=== PATIENT | female | born 1990 | race Caucasian/White ===

== ENCOUNTER → 2016-09-14 | Outpatient (CLI) | payer BC ==
[~2016-09-14] MED LIST: ACET-1256 PO; HYDR-5688 PO; ONDA4TAB10 SL; RANI150T3 PO
== END | disposition home or self-care (01) ==
LOC: C.LABSPEC 11:29
PROVIDERS: ATTEND Obstetrics & Gynecology
DX: N89.8 Other specified noninflammatory disorders of vagina (principal)

== ENCOUNTER → 2016-09-14 | Outpatient (CLI) | payer BC | END | disposition home or self-care (01) | LOC: C.PAPS 12:07 | PROVIDERS: ATTEND Obstetrics & Gynecology | DX: Z01.419 Encounter for gynecological examination (general) (routine) without abnormal findings (principal) ==

== ENCOUNTER 2017-02-10 18:26 | Emergency (ER) | payer BC ==
[~2017-02-10] VITALS: Ht 185.4 cm; Wt 100.8 kg
[2017-02-10 18:31] VITALS: TEMP 36.8; Ht 185.4 cm; Wt 100.8 kg
--- NOTE | 2017-02-10 18:36 | EMERGENCY ROOM VISIT NOTE ---
History Report prepared by Tia: Sam Segovia Under the Supervision of: Dr. Layton Ortiz M.D. First contact with patient: 18:34 Chief Complaint: ABDOMINAL PAIN Stated Complaint: SEVERE STOMACH PAINS,THROWING UP BLOOD History of Present Illness The patient is a 26 year old female who presents to the Emergency Room with complaints of episodes of vomiting that started around 2 hours ago. She says that she was feeling fine beforehand, and only had some ice cream around 6 hours ago. The patient states that she started off with cramping upper abdominal pain, which then worsened to a sharp pain. She says that she then started vomiting, and had multiple episodes. The patient adds that she later noticed some blood in her vomit. She says that there was not a lot of blood, but it was noticeable. She says that she still has the abdominal pain, and it is relieved if she sits up. She adds that her twin sister had the same symptoms as her recently, and the sister ended up having a cholecystectomy for gall stones. The patient denies any shortness of breath, chest pain, back pain, diarrhea, hematochezia, melena, or urinary symptoms. She also says that she has no chance of , and she has not eaten any unusual foods recently. Source of History: patient Onset: Around 2 hours ago Position: other (global - vomiting) Symptom Intensity: multiple episodes Quality: other (episode of vomiting blood) Timing: other (episodes) Associated Symptoms: + abdominal pain (upper), No back pain, No melena, No hematochezia, No diarrhea, No urinary symptoms Note: No other associated symptoms noted. Review of Systems See HPI for pertinent positives & negatives. A total of 10 systems reviewed and were otherwise negative. Past Medical & Surgical Medical Problems: (1) No chronic diseases present Old medical records were reviewed. Nurse's notes were reviewed and I agree with. Family History FHx: gallbladder disease Social History Smoking Status: Never Smoker Marital Status: single Occupation Status: student Current/Historical Medications Scheduled Acetaminophen (Tylenol), 1,000 MG PO PRN UD Allergies Coded Allergies: No Known Allergies (Unverified , 02/10/17) Physical Exam Vital Signs Date Time Temp Pulse Resp B/P (MAP) Pulse Ox O2 Delivery O2 Flow Rate FiO2 02/10/17 20:45 60 124/68 100 Room Air 02/10/17 19:09 64 02/10/17 18:31 36.8 74 18 145/93 98 Room Air Physical Exam General: Well developed well nourished non ill appearing young female in no acute distress, breathing comfortably on room air. Normal speech HEENT: Normal cephalic atraumatic. Pupils are equal round and reactive to light. Extraocular movements are intact. Oropharynx is pink with moist mucous membranes. No swelling of the mouth lips or tongue. Neck: Supple with a midline trachea. No meningeal signs or stiffness, no JVD or bruits. No Stridor. Chest: Clear to auscultation bilaterally. No wheezes or rhonchi. No increased work of breathing. Heart: regular rate and rhythm. Abdomen: Mildly tender to palpation in epigastric area, negative Sands's sign, no low abdominal tenderness. Soft, nondistended without rebound guarding or rigidity. Extremities: No cyanosis clubbing or edema. No calf tenderness or assymetry Spine/Back. Non tender to palpation. No CVA tenderness Skin: Good turgor without rashes. Neurologic exam: Cranial nerves two through 12 are intact. Motor and sensation are intact and symmetrical throughout. Medical Decision & Procedures ER Provider Diagnostic Interpretation: US results as stated below per my review and radiologist interpretation: ULTRASOUND RIGHT UPPER QUADRANT ABDOMEN CLINICAL HISTORY: Right upper quadrant abdominal pain. COMPARISON STUDY: No priors. TECHNIQUE: Real-time, grayscale, and color flow sonography of the right upper quadrant of the abdomen was performed. Images are reviewed in the transverse and longitudinal planes. FINDINGS: Liver: The liver is enlarged, measuring 19 cm in length. The liver is otherwise normal in echotexture. There is no intrahepatic biliary ductal dilatation. The main portal vein is patent. Gallbladder: The gallbladder is distended. There are layering shadowing calcified gallstones as well as biliary sludge. There is no gallbladder wall thickening or pericholecystic fluid. A sonographic Sands's sign could not be assessed as the patient has received analgesia. The common bile duct measures up to 0.3 cm in diameter. Pancreas: Visualized portions of the pancreatic head and body are normal in appearance. The splenic vein is patent. Right kidney: Survey images of the right kidney demonstrate normal size and echotexture. There is no hydronephrosis. Ascites: None. IMPRESSION: 1. Cholelithiasis and biliary sludge with no convincing sonographic evidence of acute cholecystitis. If there is strong clinical concern for cholecystitis consider nuclear hepatobiliary scan for further assessment. 2. There is no intra or extrahepatic biliary ductal dilatation. Electronically signed by: Billy Price M.D. 02/10/2017 8:04 PM Dictated Date/Time: 02/10/2017 8:02 PM Laboratory Results 02/10/17 19:11 Red Blood Count 4.28, Mean Corpuscular Volume 92.1, Mean Corpuscular Hemoglobin 31.1, Mean Corpuscular Hemoglobin Concent 33.8, Mean Platelet Volume 10.4, Neutrophils (%) (Auto) 66.9, Lymphocytes (%) (Auto) 19.9, Monocytes (%) (Auto) 12.2, Eosinophils (%) (Auto) 0.7, Basophils (%) (Auto) 0.1, Neutrophils # (Auto ) 5.37, Lymphocytes # (Auto) 1.60, Monocytes # (Auto) 0.98, Eosinophils # (Auto ) 0.06, Basophils # (Auto) 0.01 02/10/17 19:11 Test 02/10/17 18:55 02/10/17 19:11 Urine Test NEG (NEG) White Blood Count 8.04 K/uL (4.8-10.8) Red Blood Count 4.28 M/uL (4.2-5.4) Hemoglobin 13.3 g/dL (12.0-16.0) Hematocrit 39.4 % (37-47) Mean Corpuscular Volume 92.1 fL (80-100) Mean Corpuscular Hemoglobin 31.1 pg (25-34) Mean Corpuscular Hemoglobin Concent 33.8 g/dl (32-36) Platelet Count 251 K/uL (130-400) Mean Platelet Volume 10.4 fL (7.4-10.4) Neutrophils (%) (Auto) 66.9 % Lymphocytes (%) (Auto) 19.9 % Monocytes (%) (Auto) 12.2 % Eosinophils (%) (Auto) 0.7 % Basophils (%) (Auto) 0.1 % Neutrophils # (Auto) 5.37 K/uL (1.4-6.5) Lymphocytes # (Auto) 1.60 K/uL (1.2-3.4) Monocytes # (Auto) 0.98 K/uL (0.11-0.59) Eosinophils # (Auto) 0.06 K/uL (0-0.5) Basophils # (Auto) 0.01 K/uL (0-0.2) RDW Standard Deviation 45.9 fL (36.4-46.3) RDW Coefficient of Variation 13.7 % (11.5-14.5) Immature Granulocyte % (Auto) 0.2 % Immature Granulocyte # (Auto) 0.02 K/uL (0.00-0.02) Anion Gap 8.0 mmol/L (3-11) Est Creatinine Clear Calc Drug Dose 162.7 ml/min Estimated GFR () 135.9 Estimated GFR (Non- 117.2 BUN/Creatinine Ratio 17.8 (10-20) Calcium Level 9.1 mg/dl (8.5-10.1) Total Bilirubin 0.2 mg/dl (0.2-1) Direct Bilirubin 0.1 mg/dl (0-0.2) Aspartate Amino Transf (AST/SGOT) 13 U/L (15-37) Alanine Aminotransferase (ALT/SGPT) 20 U/L (12-78) Alkaline Phosphatase 75 U/L (45-117) Total Protein 7.4 gm/dl (6.4-8.2) Albumin 3.8 gm/dl (3.4-5.0) Lipase 214 U/L (73-393) Laboratory studies as stated above per my review. Medications Administered Medications (Trade) Dose Ordered Sig/Elpidio Route Start Time Stop Time Status Last Admin Dose Admin Ondansetron HCl (Zofran Inj) 4 mg NOW STAT IV 02/10/17 18:52 02/10/17 18:55 DC 02/10/17 19:19 4 MG Sodium Chloride 1,000 ml @ 999 mls/hr Q1H1M STAT IV 02/10/17 18:52 02/10/17 19:52 DC 02/10/17 19:18 999 MLS/HR Ketorolac Tromethamine (Toradol Inj) 30 mg NOW STAT IV 02/10/17 18:55 02/10/17 19:00 DC 02/10/17 19:19 30 MG ED Course 1850: Past medical records reviewed. The patient was evaluated in room C3, and a complete history and physical examination were performed. 1851: Ordered NSS 1000 ml @ 999 mls/hr IV, Zofran Inj 4 mg IV. 1854: Ordered Toradol Inj 30 mg IV. 1926: I reevaluated and updated the patient. 2007: I reevaluated the patient and she is resting comfortably. The patient verbally expressed understanding and agreement with the treatment plan. The patient will be discharged. Medical Decision Differentials include, but are not limited to; gastritis, gallbladder disease, electrolyte or metabolic abnormality, pancreatitis. Medication Reconciliation: I attest that I have personally reviewed the patient' s current medication list. She does not currently take any daily medications. Blood Pressure Screening: Patient was found to have a slightly elevated blood pressure due to circumstances. I do not believe that the patient requires hypertension monitoring. This patient comes in as described above. She was placed in room C3. She had epigastric pain and vomited she had a little bit of blood. She looks well on exam. her abdomen is minimally tender. Her twin sister had her gallbladder removed in the past. She has no peritonitis and has a negative Sands sign. IV access established and multiple blood testing was obtained. She has no findings to suggest sepsis or acute infection specifically nothing to suggest acute cholecystitis. She does however have multiple gallstones. She is not . It is possible that the gallstones did cause some of her symptoms the vomiting with a small amount of blood. She could have a small Eloise- Byrd tear. She should use [id number] Zantac or antacid. I encouraged to follow-up with the surgeon she may ultimately need to have the gallbladder removed. She was happy with the plan and discharged to home. Impression Primary Impression: Cholelithiases Additional Impression: Epigastric abdominal pain Scribe Attestation The scribe's documentation has been prepared under my direction and personally reviewed by me in its entirety. I confirm that the note above accurately reflects all work, treatment, procedures, and medical decision making performed by me. Departure Information Dispostion Home / Self-Care Referrals No Doctor, Assigned (PCP) Forms HOME CARE DOCUMENTATION FORM, IMPORTANT VISIT INFORMATION Patient Instructions My [facility] Additional Instructions Rest and drink plenty of fluids as tolerated. Slow sips of water or sports drinks are recommended instead of large amounts all at once. Take Zantac (Ranitidine) 150mg twice daily for your stomach due to your bleeding with vomiting Acetaminophen(Tylenol) may be used for fever or pain. Use 1000mg every six hours as needed. Avoid using more than 4000mg in a 24 hour period. Do not combine with any other medications that say Acetaminophen or Tylenol. Once your stomach is settled start with a clear liquid diet (jello, soup broth, etc.) and then advance as tolerated. You should avoid full, heavy meals for about 24 hrs from the time your symptoms resolved. Return to the ER immediately for worsening or persistent abdominal pain, vomiting, fevers, chest pains, difficulty breathing, black or bloody stools, worsening of your condition, or as needed. Follow up with your primary physician in 2-3 days for a recheck of your current condition. Follow up with [facility] - General Surgery for your Gallstones [address] [place] [address] Tuesday through , from 8:00 am to 5:00 pm Tuesday, from 8:00 am to 2:00 pm Problem Qualifiers Primary Impression: Cholelithiases Cholelithiasis location: gallbladder Cholecystitis presence: without cholecystitis Biliary obstruction: without biliary obstruction Qualified Codes: K80.20 - Calculus of gallbladder without cholecystitis without obstruction
[2017-02-10] MEDS ORDERED: SODIUM CHLORIDE 0.9% 1000ML 1,000 ML IV STA (18:52)
[2017-02-10] MEDS ORDERED: ONDANSETRON INJ 2 MG/ML 2 ML VIAL IV STA (18:52)
[2017-02-10] MEDS ORDERED: KETOROLAC TROMETHAMINE 30 MG/ML VIAL IV STA (18:55)
[2017-02-10] MEDS ORDERED: ACET-1256 PO (19:24)
[2017-02-10 19:28] LABS: BASO % 0.1 %; BASO ABS # 0.01 K/uL (0-0.2); COMPLETE YES; EOS % 0.7 %; HEMATOCRIT 39.4 % (37-47); IG% 0.2 %; LYMPH % 19.9 %; MEAN CELL VOLUME 92.1 fL (80-100); MEAN CORPUSCULAR HEMOGLOBIN 31.1 pg (25-34); MEAN CORPUSCULAR HGB CONC 33.8 g/dl (32-36); MEAN PLATELET VOLUME 10.4 fL (7.4-10.4); MONO % 12.2 %; NEUT % 66.9 %; PLATELET COUNT 251 K/uL (130-400); RED BLOOD COUNT 4.28 M/uL (4.2-5.4); WHITE BLOOD COUNT 8.04 K/uL (4.8-10.8)
[2017-02-10 19:47] LABS: BUN/CREATININE RATIO 17.8 (10-20); CALCIUM 9.1 mg/dl (8.5-10.1); CREATININE 0.72 mg/dl (0.60-1.20); POTASSIUM 3.8 mmol/L (3.5-5.1)
--- NOTE | 2017-02-10 20:05 | DIAGNOSTIC IMAGING REPORT ---
ULTRASOUND RIGHT UPPER QUADRANT ABDOMEN CLINICAL HISTORY: Right upper quadrant abdominal pain. COMPARISON STUDY: No priors. TECHNIQUE: Real-time, grayscale, and color flow sonography of the right upper quadrant of the abdomen was performed. Images are reviewed in the transverse and longitudinal planes. FINDINGS: Liver: The liver is enlarged, measuring 19 cm in length. The liver is otherwise normal in echotexture. There is no intrahepatic biliary ductal dilatation. The main portal vein is patent. Gallbladder: The gallbladder is distended. There are layering shadowing calcified gallstones as well as biliary sludge. There is no gallbladder wall thickening or pericholecystic fluid. A sonographic Sands's sign could not be assessed as the patient has received analgesia. The common bile duct measures up to 0.3 cm in diameter. Pancreas: Visualized portions of the pancreatic head and body are normal in appearance. The splenic vein is patent. Right kidney: Survey images of the right kidney demonstrate normal size and echotexture. There is no hydronephrosis. Ascites: None. IMPRESSION: 1. Cholelithiasis and biliary sludge with no convincing sonographic evidence of acute cholecystitis. If there is strong clinical concern for cholecystitis consider nuclear hepatobiliary scan for further assessment. 2. There is no intra or extrahepatic biliary ductal dilatation. Electronically signed by: Billy Price M.D. 02/10/2017 8:04 PM Dictated Date/Time: 02/10/2017 8:02 PM
--- NOTE | 2017-02-10 20:39 | EMERGENCY ROOM VISIT NOTE ---
History First contact with patient: 18:55 Chief Complaint: ABDOMINAL PAIN Stated Complaint: SEVERE STOMACH PAINS,THROWING UP BLOOD Nursing Triage Summary: Patient ambulatory to triage with a steady and upright gait, states "I am having the worst stomach pains. I was throwing up blood earlier but that has calmed down. I am still nauseated. I have pain in both sides of my abdomen under my ribs." Patient denies any back pain. Patient took 1gm of Tylenol prior to coming to the ED. History of Present Illness The patient is a 26 year old female who presents to the Emergency Room with complaints of abdominal pain. The patient states that around 5 PM this afternoon she began to have pain along her ribs below her breast line radiating across her chest. She states that the pain is a constant, 7 out of 10, dull chest pain but can come sharp and 10 out of 10 pain associated with vomiting. She had 2 prolonged episodes of vomiting, the second of which was associated with blood streaking. She has had episodes of pain associated with the vomiting like this before, but has never had blood in her vomit. She has no previous medical conditions, but states that her sister who is her twin recently developed similar pain and symptoms and was diagnosed with cholecystitis was subsequently treated with a cholecystectomy. She denies any association of the pain or vomiting with diet or any other associated conditions. She denies any fever, chills, chest pain, constipation, diarrhea, or any other acute symptoms. She denies any drug use, any history of blood clots, or any family history of blood clots. Review of Systems See HPI for pertinent positives and negatives. A total of ten systems were reviewed and were otherwise negative. Past Medical/Surgical History Medical Problems: (1) No chronic diseases present Family History FHx: gallbladder disease Social History Smoking Status: Never Smoker Current/Historical Medications Scheduled Acetaminophen (Tylenol), 1,000 MG PO PRN UD Allergies Coded Allergies: No Known Allergies (Unverified , 02/10/17) Physical Exam Vital Signs Date Time Temp Pulse Resp B/P (MAP) Pulse Ox O2 Delivery O2 Flow Rate FiO2 02/10/17 19:09 64 02/10/17 18:31 36.8 74 18 145/93 98 Room Air Physical Exam GENERAL: Awake, alert, well-appearing, in no distress HENT: Normocephalic, atraumatic. Oropharynx unremarkable. EYES: Normal conjunctiva. Sclera non-icteric. NECK: Supple. No nuchal rigidity. RESPIRATORY: Clear to auscultation. CARDIAC: Regular rate, normal rhythm. Extremities warm and well perfused. Pulses equal. ABDOMEN: Soft, non-distended. Tenderness to palpation in RUQ abdominal region and epigastric region. Positive Sands's sign. No rebound or guarding. No masses. RECTAL: Deferred. MUSCULOSKELETAL: Chest examination reveals no tenderness. The back is symmetrical on inspection without obvious abnormality. There is no CVA tenderness to palpation. No joint edema. LOWER EXTREMITIES: Calves are equal size bilaterally and non-tender. No edema. No discoloration. NEURO: Normal sensorium. No sensory or motor deficits noted. SKIN: No rash or jaundice noted. Medical Decision & Procedures Laboratory Results 02/10/17 19:11 Red Blood Count 4.28, Mean Corpuscular Volume 92.1, Mean Corpuscular Hemoglobin 31.1, Mean Corpuscular Hemoglobin Concent 33.8, Mean Platelet Volume 10.4, Neutrophils (%) (Auto) 66.9, Lymphocytes (%) (Auto) 19.9, Monocytes (%) (Auto) 12.2, Eosinophils (%) (Auto) 0.7, Basophils (%) (Auto) 0.1, Neutrophils # (Auto ) 5.37, Lymphocytes # (Auto) 1.60, Monocytes # (Auto) 0.98, Eosinophils # (Auto ) 0.06, Basophils # (Auto) 0.01 02/10/17 19:11 Test 02/10/17 19:11 White Blood Count 8.04 K/uL (4.8-10.8) Red Blood Count 4.28 M/uL (4.2-5.4) Hemoglobin 13.3 g/dL (12.0-16.0) Hematocrit 39.4 % (37-47) Mean Corpuscular Volume 92.1 fL (80-100) Mean Corpuscular Hemoglobin 31.1 pg (25-34) Mean Corpuscular Hemoglobin Concent 33.8 g/dl (32-36) Platelet Count 251 K/uL (130-400) Mean Platelet Volume 10.4 fL (7.4-10.4) Neutrophils (%) (Auto) 66.9 % Lymphocytes (%) (Auto) 19.9 % Monocytes (%) (Auto) 12.2 % Eosinophils (%) (Auto) 0.7 % Basophils (%) (Auto) 0.1 % Neutrophils # (Auto) 5.37 K/uL (1.4-6.5) Lymphocytes # (Auto) 1.60 K/uL (1.2-3.4) Monocytes # (Auto) 0.98 K/uL (0.11-0.59) Eosinophils # (Auto) 0.06 K/uL (0-0.5) Basophils # (Auto) 0.01 K/uL (0-0.2) RDW Standard Deviation 45.9 fL (36.4-46.3) RDW Coefficient of Variation 13.7 % (11.5-14.5) Immature Granulocyte % (Auto) 0.2 % Immature Granulocyte # (Auto) 0.02 K/uL (0.00-0.02) Anion Gap 8.0 mmol/L (3-11) Est Creatinine Clear Calc Drug Dose 162.7 ml/min Estimated GFR () 135.9 Estimated GFR (Non- 117.2 BUN/Creatinine Ratio 17.8 (10-20) Calcium Level 9.1 mg/dl (8.5-10.1) Total Bilirubin 0.2 mg/dl (0.2-1) Direct Bilirubin 0.1 mg/dl (0-0.2) Aspartate Amino Transf (AST/SGOT) 13 U/L (15-37) Alanine Aminotransferase (ALT/SGPT) 20 U/L (12-78) Alkaline Phosphatase 75 U/L (45-117) Total Protein 7.4 gm/dl (6.4-8.2) Albumin 3.8 gm/dl (3.4-5.0) Lipase 214 U/L (73-393) Medications Administered Medications (Trade) Dose Ordered Sig/Elpidio Route Start Time Stop Time Status Last Admin Dose Admin Ondansetron HCl (Zofran Inj) 4 mg NOW STAT IV 02/10/17 18:52 02/10/17 18:55 DC 02/10/17 19:19 4 MG Sodium Chloride 1,000 ml @ 999 mls/hr Q1H1M STAT IV 02/10/17 18:52 02/10/17 19:52 DC 02/10/17 19:18 999 MLS/HR Ketorolac Tromethamine (Toradol Inj) 30 mg NOW STAT IV 02/10/17 18:55 02/10/17 19:00 DC 02/10/17 19:19 30 MG Medical Decision Patient is a 26 year old female that presents with vomiting and abdominal pain Labs: CBC, BMP, Lipase, LFTs Imaging: Gallbladder US Medications: Zofran, Toradol Fluids: 1L NS Impression Primary Impression: Cholelithiases Patient is a 26 year old female that presents with abdominal pain and vomiting - On US of the Gallbladder the patient was found to have Cholelithiasis and biliary sludge with no convincing sonographic evidence of acute cholecystitis - CBC, BMP, Lipase, and LFTs appear to be within normal limit - Patient states she feels much better after receiving 1L of NS, Toradol, and Zofran - Patient agreeable to discharge home and follow-up with general surgery Departure Information Dispostion Home / Self-Care Condition GOOD Referrals No Doctor, Assigned (PCP) Patient Instructions My [facility] Additional Instructions Rest and drink plenty of fluids as tolerated. Slow sips of water or sports drinks are recommended instead of large amounts all at once. Take Zantac (Ranitidine) 150mg twice daily for your stomach due to your bleeding with vomiting Acetaminophen(Tylenol) may be used for fever or pain. Use 1000mg every six hours as needed. Avoid using more than 4000mg in a 24 hour period. Do not combine with any other medications that say Acetaminophen or Tylenol. Once your stomach is settled start with a clear liquid diet (jello, soup broth, etc.) and then advance as tolerated. You should avoid full, heavy meals for about 24 hrs from the time your symptoms resolved. Return to the ER immediately for worsening or persistent abdominal pain, vomiting, fevers, chest pains, difficulty breathing, black or bloody stools, worsening of your condition, or as needed. Follow up with your primary physician in 2-3 days for a recheck of your current condition. Follow up with [facility] - General Surgery for your Gallstones [address] [place] [id number] Tuesday through , from 8:00 am to 5:00 pm Tuesday, from 8:00 am to 2:00 pm Problem Qualifiers Primary Impression: Cholelithiases Cholelithiasis location: gallbladder Cholecystitis presence: without cholecystitis Biliary obstruction: without biliary obstruction Qualified Codes: K80.20 - Calculus of gallbladder without cholecystitis without obstruction
[2017-02-10 20:45] VITALS: BP 124/68; PULSE 60; O2SAT 100
== END 2017-02-10 20:55 | disposition home or self-care (01) ==
LOC: C.EDB 18:27 → C.EDC 20:55
DX: K80.20 Calculus of gallbladder without cholecystitis without obstruction (principal)

== ENCOUNTER 2017-02-18 03:22 | Emergency (ER) | payer BC ==
[~2017-02-18] VITALS: Ht 185.4 cm; Wt 99.3 kg
[~2017-02-18 03:22] MED LIST changes: -HYDR-5688 PO; -ONDA4TAB10 SL; -RANI150T3 PO
[2017-02-18 03:25] VITALS: TEMP 36.7; Ht 185.4 cm; Wt 99.3 kg
[2017-02-18] MEDS ORDERED: RANI150T3 PO (03:44)
[2017-02-18] MEDS ORDERED: KETOROLAC TROMETHAMINE 30 MG/ML VIAL IV STA (03:57)
[2017-02-18] MEDS ORDERED: ONDANSETRON INJ 2 MG/ML 2 ML VIAL IV STA (03:57)
[2017-02-18] MEDS ORDERED: SODIUM CHLORIDE 0.9% 1000ML 1,000 ML IV ONE (04:00)
[2017-02-18 04:03] LABS: BASO % 0.3 %; BASO ABS # 0.02 K/uL (0-0.2); COMPLETE YES; EOS % 1.2 %; HEMATOCRIT 42.7 % (37-47); IG% 0.3 %; LYMPH % 27.3 %; LYMPH ABS # 2.07 K/uL (1.2-3.4); MEAN CORPUSCULAR HEMOGLOBIN 30.8 pg (25-34); MEAN CORPUSCULAR HGB CONC 33.5 g/dl (32-36); MEAN PLATELET VOLUME 10.5 fL (7.4-10.4); MONO % 13.5 %; NEUT % 57.4 %; PLATELET COUNT 253 K/uL (130-400); RED BLOOD COUNT 4.64 M/uL (4.2-5.4); WHITE BLOOD COUNT 7.58 K/uL (4.8-10.8)
[2017-02-18 04:48] LABS: BUN/CREATININE RATIO 15.1 (10-20); CREATININE 0.75 mg/dl (0.60-1.20); POTASSIUM 3.8 mmol/L (3.5-5.1)
[2017-02-18 04:51] LABS: ALB/GLOB RATIO 1.1 (0.9-2)
--- NOTE | 2017-02-18 06:56 | DIAGNOSTIC IMAGING REPORT ---
GALLBLADDER-ABD LIMITED HISTORY: 26 years-old Female acute right upper quadrant abdominal pain COMPARISON: Ultrasound 02/10/2017 TECHNIQUE: Multiple real-time sonographic images of the abdominal right upper quadrant were obtained assessing grayscale appearance FINDINGS: Imaged pancreas is unremarkable with the distal body and tail obscured by bowel gas. Liver appears to be within normal limits measuring up to 19 cm in length. Layering gallbladder sludge and shadowing cholelithiasis redemonstrated. No bladder wall thickening or pericholecystic fluid collection. Patient was reportedly medicated for pain, therefore a reliable sonographic Sands's test was not obtained. Common bile duct appears normal without dilation measuring up to 3 mm transversely. The right kidney appears to be within normal limits without hydronephrosis. IMPRESSION: 1. Cholelithiasis and gallbladder sludge without sonographic evidence of acute cholecystitis. 2. No biliary ductal dilatation. The above report was generated using voice recognition software. It may contain grammatical, syntax or spelling errors. Electronically signed by: Tor Ivey M.D. 02/18/2017 6:55 AM Dictated Date/Time: 02/18/2017 6:51 AM
[2017-02-18] MEDS ORDERED: ONDA4TAB10 SL (07:17)
[2017-02-18] MEDS ORDERED: HYDR-5688 PO (07:17)
[2017-02-18 07:29] VITALS: BP 108/69; PULSE 61; O2SAT 99
--- NOTE | 2017-02-19 04:40 | EMERGENCY ROOM VISIT NOTE ---
History First contact with patient: 03:41 Chief Complaint: ABDOMINAL PAIN Stated Complaint: SEVERE STOMACH PAINS,VOMITING History of Present Illness The patient is a 26 year old female who presents to the Emergency Room with complaints of right upper quadrant abdominal pain with nausea and vomiting for the past 2 hours. The patient states that she was seen about a week and a half ago at this facility with similar complaints. She had an ultrasound at that time which showed gallstones and sludge. She did not have acute cholecystitis at that time and is scheduled with an outpatient surgeon in about 2 weeks. The patient states that she had been eating a very bland diet up until last evening when she ate a cheeseburger. The patient states that she awoke with her discomfort and that it feels identical to her episode earlier in the month. The patient has not had fever or chills. No lower abdominal pain. She rates her discomfort a sharp 8/10 that does not radiate. Review of Systems More than 10 systems were reviewed and otherwise negative with the exception of history of present illness. Past Medical/Surgical History Medical Problems: (1) No chronic diseases present Family History FHx: gallbladder disease No pertinent family history Social History Smoking Status: Never Smoker Marital Status: single Occupation Status: student Current/Historical Medications Scheduled Ondasetron Odt (Zofran Odt), 4 MG SL Q6H Ranitidine Hcl (Zantac), 150 MG PO BID Scheduled PRN Acetaminophen (Tylenol), 1,000 MG PO DIRECTED PRN for Pain or Fever Hydrocodone/Acetaminophen 5MG/325MG ([place] 5MG/325MG), 1 TABLET PO Q6 PRN for Pain Physical Exam Vital Signs Date Time Temp Pulse Resp B/P (MAP) Pulse Ox O2 Delivery O2 Flow Rate FiO2 02/18/17 07:29 61 18 108/69 99 02/18/17 06:52 55 16 102/65 98 Room Air 02/18/17 05:11 62 16 122/69 97 Room Air 02/18/17 03:25 36.7 79 16 134/89 98 Room Air Pain Rating (0-10): 1.0 Physical Exam VITALS: Vitals are noted on the nurse's note and reviewed by myself. Vital signs stable. GENERAL: Well-developed, well-nourished, white female, who is in no acute distress and resting comfortably. Patient is cooperative with the examination. HEAD: Normocephalic atraumatic. HEART: Regular rate and rhythm without murmurs gallops or rubs. LUNGS: Clear to auscultation bilaterally without wheezes, rales or rhonchi. No retractions or accessory muscle use. ABDOMEN: Positive normal bowel sounds x 4. Soft with positive right upper quadrant tenderness on palpation. No lower abdominal tenderness. No rebound or guarding. No CVA tenderness. MUSCULOSKELETAL: No muscle atrophy, erythema, or edema noted. Full range of motion without joint tenderness in all extremities. Medical Decision & Procedures ER Provider Diagnostic Interpretation: GALLBLADDER-ABD LIMITED HISTORY: 26 years-old Female acute right upper quadrant abdominal pain COMPARISON: Ultrasound 02/10/2017 TECHNIQUE: Multiple real-time sonographic images of the abdominal right upper quadrant were obtained assessing grayscale appearance FINDINGS: Imaged pancreas is unremarkable with the distal body and tail obscured by bowel gas. Liver appears to be within normal limits measuring up to 19 cm in length. Layering gallbladder sludge and shadowing cholelithiasis redemonstrated. No bladder wall thickening or pericholecystic fluid collection. Patient was reportedly medicated for pain, therefore a reliable sonographic Sands's test was not obtained. Common bile duct appears normal without dilation measuring up to 3 mm transversely. The right kidney appears to be within normal limits without hydronephrosis. IMPRESSION: 1. Cholelithiasis and gallbladder sludge without sonographic evidence of acute cholecystitis. 2. No biliary ductal dilatation. Laboratory Results 02/18/17 03:40 Red Blood Count 4.64, Mean Corpuscular Volume 92.0, Mean Corpuscular Hemoglobin 30.8, Mean Corpuscular Hemoglobin Concent 33.5, Mean Platelet Volume 10.5, Neutrophils (%) (Auto) 57.4, Lymphocytes (%) (Auto) 27.3, Monocytes (%) (Auto) 13.5, Eosinophils (%) (Auto) 1.2, Basophils (%) (Auto) 0.3, Neutrophils # (Auto ) 4.36, Lymphocytes # (Auto) 2.07, Monocytes # (Auto) 1.02, Eosinophils # (Auto ) 0.09, Basophils # (Auto) 0.02 02/18/17 03:40 Test 02/18/17 03:40 White Blood Count 7.58 K/uL (4.8-10.8) Red Blood Count 4.64 M/uL (4.2-5.4) Hemoglobin 14.3 g/dL (12.0-16.0) Hematocrit 42.7 % (37-47) Mean Corpuscular Volume 92.0 fL (80-100) Mean Corpuscular Hemoglobin 30.8 pg (25-34) Mean Corpuscular Hemoglobin Concent 33.5 g/dl (32-36) Platelet Count 253 K/uL (130-400) Mean Platelet Volume 10.5 fL (7.4-10.4) Neutrophils (%) (Auto) 57.4 % Lymphocytes (%) (Auto) 27.3 % Monocytes (%) (Auto) 13.5 % Eosinophils (%) (Auto) 1.2 % Basophils (%) (Auto) 0.3 % Neutrophils # (Auto) 4.36 K/uL (1.4-6.5) Lymphocytes # (Auto) 2.07 K/uL (1.2-3.4) Monocytes # (Auto) 1.02 K/uL (0.11-0.59) Eosinophils # (Auto) 0.09 K/uL (0-0.5) Basophils # (Auto) 0.02 K/uL (0-0.2) RDW Standard Deviation 45.9 fL (36.4-46.3) RDW Coefficient of Variation 13.6 % (11.5-14.5) Immature Granulocyte % (Auto) 0.3 % Immature Granulocyte # (Auto) 0.02 K/uL (0.00-0.02) Anion Gap 6.0 mmol/L (3-11) Est Creatinine Clear Calc Drug Dose 155.1 ml/min Estimated GFR () 129.3 Estimated GFR (Non- 111.6 BUN/Creatinine Ratio 15.1 (10-20) Calcium Level 9.0 mg/dl (8.5-10.1) Total Bilirubin 0.2 mg/dl (0.2-1) Aspartate Amino Transf (AST/SGOT) 14 U/L (15-37) Alanine Aminotransferase (ALT/SGPT) 20 U/L (12-78) Alkaline Phosphatase 81 U/L (45-117) Total Protein 7.7 gm/dl (6.4-8.2) Albumin 4.0 gm/dl (3.4-5.0) Globulin 3.7 gm/dl (2.5-4.0) Albumin/Globulin Ratio 1.1 (0.9-2) Lipase 255 U/L (73-393) Medications Administered Medications (Trade) Dose Ordered Sig/Elpidio Route Start Time Stop Time Status Last Admin Dose Admin Sodium Chloride 1,000 ml @ 999 mls/hr Q1H1M ONCE IV 02/18/17 04:00 02/18/17 05:00 DC 02/18/17 04:22 999 MLS/HR Ketorolac Tromethamine (Toradol Inj) 30 mg NOW STAT IV 02/18/17 03:57 02/18/17 03:58 DC 02/18/17 04:22 30 MG Ondansetron HCl (Zofran Inj) 4 mg NOW STAT IV 02/18/17 03:57 02/18/17 03:59 DC 02/18/17 04:21 4 MG ED Course Physical exam and history were performed. Nursing notes, EMR, and Medication List were personally reviewed. Patient appears to have right upper quadrant abdominal pain after eating a cheeseburger for dinner. She does have known gallstones and is tender on palpation in the right upper quadrant. IV access was established and labs were obtained. Patient was hydrated and medicated as above. Ultrasound was performed. The patient was reevaluated multiple times with course of her stay. She does not have a significantly elevated white blood cell count, gross anemia, bandemia , or significant electrolyte imbalance. Lipase and transaminases are nondiagnostic. Ultrasound shows gallstones and sludge but no acute cholecystitis. On reevaluation the patient felt much better and much more comfortable. She did continue to have some mild right upper quadrant tenderness, however this was much improved from before. I discussed options of care with the patient and she does feel comfortable with discharge home. This appears reasonable. I suspect that her symptoms are a result of biliary colic, and I suspect that she will require elective cholecystectomy. She should return to a bland diet and avoid fatty foods that may trigger her condition. She was certainly invited back to the emergency Department with any worsening of her symptoms. The patient was pleased with this plan and voiced understanding. She rated her discomfort a 1/10 at the time of departure. The chart was completed utilizing [employer] Voice [employer]ognition Software. Grammatical errors, random word insertions, pronoun errors, and incomplete sentences are an occasional consequence of this system due to software limitations, ambient noise, and hardware issues. Any formal questions or concerns about the content, text, or information contained within the body of this dictation should be directly addressed to the provider for clarification. . Medical Decision Differential diagnosis: Etiologies such as appendicitis, diverticulitis, PUD, biliary pathology, UTI, pancreatitis, obstruction, mesenteric ischemia, aortic pathology, infections, inflammatory bowel disease, renal colic, as well as others were entertained. Medication Reconcilliation Current Medication List: was personally reviewed by me Impression Primary Impression: Biliary colic Departure Information Dispostion Home / Self-Care Condition GOOD Prescriptions Ondasetron Odt (ZOFRAN ODT) 4 Mg Tab 4 MG SL Q6H for Nausea, #12 TAB Prov: Jian Childers PA-C 02/18/17 Hydrocodone/Acetaminophen 5MG/325MG ([place] 5MG/325MG) Tab 1 TABLET PO Q6 Y for Pain, #12 TAB For Initial Treatment Prov: Jian Childers PA-C 02/18/17 Forms HOME CARE DOCUMENTATION FORM, IMPORTANT VISIT INFORMATION Patient Instructions My [facility] Additional Instructions You were seen and evaluated today on an emergency basis only. This is not a substitute for, or an effort to provide, complete comprehensive medical care. It is not possible to recognize and treat all injuries or illnesses in a single emergency department visit. For this reason it is recommended that you followup with your general surgery appointment scheduled for ongoing care and evaluation. [place] (hydrocodone/acetaminophen) 5/325 mg every 6 hours as needed for worsening breakthrough pain. Do not drink or drive on [place]. This medication will likely make you tired. Do not take [place] and Tylenol at the same time as both contain acetaminophen. [place] may cause constipation. You may wish to take an szmu-dmv-pochals stool softener like Colace if this occurs. Zofran 1 tablet every 6 hrs as needed for nausea. Continue watching her diet and avoid foods that may exacerbate your symptoms. Typically foods with higher fat content will cause recurrence of symptoms. You are welcome to return to the emergency department anytime with new, worsening, or concerning symptoms.
== END 2017-02-18 07:30 | disposition home or self-care (01) ==
LOC: C.EDB 03:23
DX: K80.20 Calculus of gallbladder without cholecystitis without obstruction (principal)